=== PATIENT | female | born 1995 | race American Indian/Alaskan Native ===

== ENCOUNTER 2021-05-10 14:01 | Emergency (ER) | payer OTHER ==
[2021-05-10] MEDS ORDERED: IBUPROFEN 800 MG TAB PO STA (14:36)
[2021-05-10] MEDS ORDERED: oxyCODONE /ACETAMINOPHEN 5-325MG TAB PO ONE (14:36)
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
--- NOTE | 2021-05-10 15:39 | XRay Report ---
Left shoulder 3 views INDICATION: Left shoulder pain IMPRESSION: No fracture or subluxation of the left shoulder is identified. Signer Name: Robert Lozano MD Signed: 05/10/2021 3:35 PM Workstation Name: [id number]
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
--- NOTE | 2021-05-10 15:40 | XRay Report ---
Lumbar spine 2 views INDICATION: Low back pain IMPRESSION: No fracture or subluxation of the lumbar spine is identified. Signer Name: Robert Lozano MD Signed: 05/10/2021 3:36 PM Workstation Name: [id number]
[2021-05-10 16:41] VITALS: BP 120/78
== END 2021-05-10 16:45 | disposition home or self-care (01) ==
LOC: ED 14:01
DX: M25.512 Pain in left shoulder (principal); M54.2 Cervicalgia; R07.81 Pleurodynia; Y04.8XXA Assault by other bodily force, initial encounter; Y93.89 Activity, other specified; Y92.89 Other specified places as the place of occurrence of the external cause; Y99.8 Other external cause status
CPT/HCPCS: 72040; 72070; 72100; 99284